=== PATIENT | male | born 1970 | race Caucasian/White ===

== ENCOUNTER 2018-04-26 11:11 | Emergency (ER) | payer MEDICARE ==
[2018-04-26] MEDS ORDERED: Cyclobenzaprine 10 MG TAB ONE (11:39)
[2018-04-26] MEDS ORDERED: HYDROcodone/Acetaminophen 10/325 mg Tablet ONE (11:39)
[2018-04-26 12:21] LABS: #Basophils 0.1 thou/uL (0.0-0.2); #Eosinphils 0.2 thou/uL (0.0-0.7); #Lymphocytes 1.5 thou/uL (1.20-3.40); #Monocytes 0.4 thou/uL (0.11-0.59); #Neutrophils 4.3 thou/uL (1.40-6.50); %Basophils 1.3 % (0.0-1.0); %Lymphocytes 23.7 % (21.0-51.0); %Monocytes 5.6 % (0.0-10.0); %Neutrophils 66.4 % (42.0-75.0); Hemoglobin 13.7 g/dL (14.0-18.0); Mean Corpuscular HGB CONC 32.3 g/dL (32.0-36.0); Mean Corpuscular Hemoglobin 29.8 pg (27.0-31.0); Mean Corpuscular Volume 92.2 fL (78.0-98.0); Mean Platelet Volume 6.8 fL (7.4-10.4); Platelet Count 259 thou/uL (130-400); RBC Distribution Width 11.9 % (11.5-14.5); Red Blood Cell (RBC) Count 4.61 mill/uL (4.70-6.10); White Blood Cell (WBC) Count 6.4 thou/uL (4.8-10.8)
[2018-04-26 12:35] LABS: ALT (SGPT) 54 U/L (8-55); AST (SGOT) 50 U/L (5-34); Albumin 4.1 g/dL (3.5-5.0); Alkaline Phosphatase 125 U/L (40-150); Anion Gap 15 mmol/L (10-20); BUN (Urea Nitrogen) 23 mg/dL (8.9-20.6); Bilirubin, Total 0.7 mg/dL (0.2-1.2); Calc. Creatinine Clearance 0 mL/min (70-130); Calcium 8.8 mg/dL (7.8-10.44); Carbon Dioxide 23 mmol/L (22-29); Chloride 103 mmol/L (98-107); Estimated GFR-MDRD 48; Globulin 3.9 g/dL (2.4-3.5); Glucose 138 mg/dL (70-105); Potassium 4.3 mmol/L (3.5-5.1); Sodium 137 mmol/L (136-145)
[2018-04-26 12:37] LABS: CKMB 1.2 ng/mL (0-6.6); Troponin I Less than 0.010 ng/mL (< 0.028)
[2018-04-26 14:01] LABS: Bilirubin Negative (Negative); Blood, Urine Trace (Negative); Clarity Clear (Clear); Glucose, Urine (Dipstick) Negative (Negative); Leukocyte Trace (Negative); Nitrite Negative (Negative); Protein, Urine (Dipstick) Negative (Neg-Trace); pH, Urine 5.5 (5.0-9.0)
[2018-04-26 14:04] LABS: Squamous Epithelial 0-3 HPF (0-3)
[2018-04-26 14:05] LABS: Bacteria/HPF Rare-Few HPF (None Seen)
--- NOTE | 2018-04-26 15:02 | CT ---
CERVICAL SPINE CT WITHOUT CONTRAST: DATE: 04/26/2018. COMPARISON: None. HISTORY: Injury, trauma, pain. TECHNIQUE: Serial axial CT imaging at 2.5 mm intervals from the skull base through the lung apices without contr ast. Coronal and sagittal reformatted imaging obtained. FINDINGS: There is mucosal thickening involving the alveolar recess of the right maxillary sinus. The C1 ring is intact. Body habitus limits detailed assessment of C5, C6, C7, and T1 vertebral bodies. On sagittal imaging, beam-hardening artifact severely limits assessment of C7 and T1 vertebral bodies. Axial imaging demonstrates no evidence for a fracture within the cervical spine, including the level of the cervicothoracic junction, which is not well assessed on the sagittal reformatted imaging. The re are numerous postoperative clips in the region of the thyroid bed. The occipital condyles, the dens, and the C1-2 articulation appears within normal limits as does the craniocervical junction. There is left-sided uncovertebral osteophyte formation at C5-6. No acute f racture or dislocation. No anterolisthesis or retrolisthesis. No prevertebral soft tissue swelling. IMPRESSION: No acute osseous abnormality. POS: [facility]
--- NOTE | 2018-04-26 15:29 | CT ---
CT OF THORACIC SPINE: DATE: 04/26/2018. COMPARISON: None. HISTORY: Injury, trauma, pain. TECHNIQUE: Serial axial CT imaging is obtained at 2.5 mm intervals from the lower cervical spine through the upp er lumbar spine without contrast. Coronal and sagittal reformatted imaging obtained. FINDINGS: Evaluation of the imaged viscera, vascular structures, and for lymphadenopathy is limited on noncontr ast-enhanced imaging. Surgical clips are seen in the thyroid bed suggesting prior thyroidectomy. Postoperative metallic clips noted inferior to the medial aspect of the right 2nd, 3rd, and 6th ribs. There is mild anterior wedging of the T8 and T9 vertebral bodies consistent with mild old compression fractures, as seen on a CT examination of the abdomen and pelvis performed 05/16/2011. The imaged lung parenchyma demonstrates no acute findings. Partially imaged upper abdomen demonstrates incompletely imaged hydronephrosis of the left kidney wit h dilation of the left renal pelvis, new when compared to 05/16/2011. This suggests new obstructive u ropathy on the left for which dedicated CT of the abdomen and pelvis is recommended. There is no acute fracture or evidence of dislocation within the thoracic spine. There is postoperat fam partial resection of the lamina on the right at T5 with postoperative change involving the gas furnace installer ior elements to the right of midline at T5-6. These postoperative changes are not optimally assessed on this exam. There is partial postoperative resection of the posterior aspect of the right 5th and 6th ribs. No discrete worrisome lytic or blastic bone lesion. IMPRESSION: 1. Postoperative and prior posttraumatic changes of the thoracic spine. Evaluation for underlying c entral canal and/or neural foraminal stenosis is suboptimal on routine CT. Postoperative site is not well assessed on this exam. 2. There is no evidence for acute fracture or dislocation within the thoracic spine. 3. Partially imaged left kidney demonstrates hydronephrosis with dilation of a partially imaged peter l pelvis. This is concerning for interval development of obstructive uropathy, etiology uncertain. Recommend CT examination of abdomen and pelvis for further assessment. CODE T POS: [facility]
--- NOTE | 2018-04-26 15:34 | CT ---
CT OF THE ABDOMEN AND PELVIS NONCONTRAST: INDICATION: Abdominal pain. Renal calculus protocol. Performed. FINDINGS: There is moderate left hydroureteral nephrosis with an obstructing, distal left ureteral calculus, wh ich measures 1 cm in diameter. There is nephrolithiasis of the lower pole of the left kidney. No ri ght urolithiasis. Within the imaged aspects of the urinary bladder, no visible calculus is seen. Pu nctate radiopaque densities are seen at the pleural surface of the right hemithorax, posteromedially. There is osseous degenerative change. Colonic diverticula are present. Evaluation is otherwise li mited the basis of noncontrast technique. IMPRESSION: 1. 1 cm distal left ureteral obstructing calculus with moderate left obstructive uropathy. Due to t he size of the calculus, recommend urologic consultation for further care. 2. Left nephrolithiasis. POS: [facility]
== END 2018-04-26 15:38 | disposition home or self-care (01) ==
LOC: MADERS 11:11
DX: N13.2 Hydronephrosis with renal and ureteral calculous obstruction (principal); S29.012A Strain of muscle and tendon of back wall of thorax, initial encounter; E78.5 Hyperlipidemia, unspecified; I10 Essential (primary) hypertension; X58.XXXA Exposure to other specified factors, initial encounter
CPT/HCPCS: 72125; 72128; 74176; 80053; 81003; 81015; 82553; 84484; 85025; 93005

== ENCOUNTER 2018-05-07 09:44 | Outpatient (CLI) | payer MEDICARE | END 2018-05-07 09:45 | disposition home or self-care (01) | LOC: MADEKG 09:44 | PROVIDERS: ATTEND Family Medicine | DX: R94.31 Abnormal electrocardiogram [ECG] [EKG] (principal) | CPT/HCPCS: 93005 ==

== ENCOUNTER 2018-05-13 09:53 | Outpatient (CLI) | payer MEDICARE ==
[2018-05-13 10:19] LABS: Bilirubin Negative (Negative); Blood, Urine Negative (Negative); Clarity Clear (Clear); Glucose, Urine (Dipstick) Negative (Negative); Leukocyte Trace (Negative); Nitrite Negative (Negative); Protein, Urine (Dipstick) Negative (Neg-Trace); Specific Gravity, Urine 1.025 (1.005-1.030); Urobilinogen 0.2 mg/dL (0.2-1.0); pH, Urine 5.5 (5.0-9.0)
[2018-05-13 10:28] LABS: Anion Gap 14 mmol/L (10-20); BUN (Urea Nitrogen) 18 mg/dL (8.9-20.6); Calc. Creatinine Clearance 0 mL/min (70-130); Calcium 9.7 mg/dL (7.8-10.44); Carbon Dioxide 26 mmol/L (22-29); Chloride 104 mmol/L (98-107); Estimated GFR-MDRD 52; Glucose 129 mg/dL (70-105); Potassium 3.9 mmol/L (3.5-5.1); Sodium 140 mmol/L (136-145)
[2018-05-13 10:32] LABS: Bacteria/HPF Rare-Few HPF (None Seen); RBC/HPF None Seen HPF (0-3); Squamous Epithelial 0-3 HPF (0-3)
--- NOTE | 2018-05-13 11:34 | CT ---
ABDOMEN CT WITHOUT CONTRAST PELVIC CT WITHOUT CONTRAST: Date: 05/13/18 COMPARISON: 04/26/18. HISTORY: Left flank pain. TECHNIQUE: Abdomen and pelvis CT are performed without contrast. Reformatted images are submitted for interpreta tion. FINDINGS: ABDOMEN CT: Chronic changes in the lung bases. Normal heart size. No significant pericardial fluid. Visualized ao rta has a normal caliber. No periaortic fat stranding. Gallbladder is surgically absent. Limited evaluation of the solid organs due to lack of IV contrast. No change with regards to the atte nuation of the solid organs. No mesenteric mass, lymphadenopathy, free air, or free fluid. No retroperitoneal mass, lymphadenopathy, free air, or free fluid. Stable moderate dilatation of the left intra and extrarenal collecting system. There is redemonstrati on of a solitary calculus in the distal aspect of the left ureter, measuring approximately 1.0 cm. Right intra and extrarenal collecting system is unremarkable. Limited evaluation of the alimentary canal. No evidence of bowel obstruction. Ileocecal junction is n ormal. Appendix is not appreciated. Colon is unremarkable. Occasional diverticulum. CT PELVIS: No mass, lymphadenopathy, free air, or free fluid. No lytic or blastic lesions in the osseous structures. IMPRESSION: Stable moderate left-sided obstructive uropathy secondary to a calculus in the distal left ureter. POS: [facility]
== END 2018-05-13 09:54 | disposition home or self-care (01) ==
LOC: MADLABBHPM 09:53
PROVIDERS: ATTEND Urology
DX: N20.0 Calculus of kidney (principal)
CPT/HCPCS: 36415; 74176; 80048; 81001

== ENCOUNTER 2018-07-22 07:55 | Emergency (ER) | payer MEDICARE, OTHER | END 2018-07-22 08:42 | disposition home or self-care (01) | LOC: MADERS 07:55 | DX: B34.9 Viral infection, unspecified (principal); E03.9 Hypothyroidism, unspecified; I10 Essential (primary) hypertension; E78.5 Hyperlipidemia, unspecified; Z87.442 Personal history of urinary calculi | CPT/HCPCS: 99281 ==

== ENCOUNTER 2018-12-16 14:48 | Outpatient (CLI) | payer MEDICARE ==
[~2018-12-16 14:48] MED LIST: Iopamidol 370 76% 100 ML VIAL ONE
--- NOTE | 2018-12-16 16:12 | CT ---
CT chest with IV contrast HISTORY: Anterior chest pain with radiation to back. Prior chest surgery for spinal tumors. FINDINGS: Lungs are well-inflated. No dominant mass. Scattered tiny nonspecific subpleural nodules. C hronic bilateral rib abnormalities are likely related to prior surgeries. Hemostasis clips at the right posterior paraspinal level of the upper thoracic cavity. Normal branching of the great vessels at the aortic arch. Calcification in coronary arteries. No pleural fluid or pneumothorax. No mediastinal adenopathy. Minimal pericardial fluid. The sternum has normal appearance. No chest wall m asses are apparent. Gallbladder is surgically absent. Leftward convex curvature of the midthoracic spine. Mild chronic appearing compression of the T9 vert ebral body. Stable compared to 04/26/2018. IMPRESSION: Prior surgery the posterior mediastinum and other chronic-type findings are stable. No ac piyush abnormalities are demonstrated to explain the patient's symptoms. Atherosclerosis.
== END 2018-12-16 14:49 | disposition home or self-care (01) ==
LOC: MADCT 14:48
DX: D18.00 Hemangioma unspecified site (principal); R07.89 Other chest pain; R52 Pain, unspecified; I25.10 Atherosclerotic heart disease of native coronary artery without angina pectoris
CPT/HCPCS: 71260; Q9967

== ENCOUNTER 2019-11-15 07:23 | Outpatient (CLI) | payer MEDICARE ==
--- NOTE | 2019-11-15 09:28 | ULT ---
RENAL ULTRASOUND: INDICATION: History of chronic kidney disease. FINDINGS: The prevoid bladder volume was 61.4 cc. Minimal postvoid residual was present. The right kidney measured 12.3 x 5.8 x 6.1 cm. There is a simple inferior renal peripelvic cyst maury uring 3.2 x 1.5 x 2 cm. The left kidney measures 10.6 x 5.3 x 5.7 cm. No focal renal lesion or hydronephrosis is evident. IMPRESSION: 1. No focal solid renal lesion or hydronephrosis demonstrated. 2. Right renal inferior parapelvic cyst. POS: [facility]
== END 2019-11-15 07:24 | disposition home or self-care (01) ==
LOC: MADULT 07:23
PROVIDERS: ATTEND Internal Medicine Nephrology
DX: N18.3 Chronic kidney disease, stage 3 (moderate) (principal); N28.1 Cyst of kidney, acquired
CPT/HCPCS: 76770

== ENCOUNTER 2019-11-26 13:14 | Emergency (ER) | payer MEDICARE ==
[2019-11-26] MEDS ORDERED: Morphine 4 MG/ML VIAL ONE ×2 (13:19→14:48)
--- NOTE | 2019-11-26 13:48 | RAD ---
EXAM: Chest 2 views: HISTORY: Chest pain COMPARISON: 06/24/2015 FINDINGS: There is a normal-sized cardiomediastinal silhouette. There is no evidence of consolidation, mass, or pleural effusion. The bones are unremarkable. IMPRESSION: No evidence of acute cardiopulmonary disease
[2019-11-26] MEDS ORDERED: Ketorolac Tromethamine 30 MG/ML VIAL ONE (13:54)
[2019-11-26] MEDS ORDERED: Ondansetron PF 4 MG/2 ML Vial ONE (14:07)
[2019-11-26] MEDS ORDERED: Diazepam 5 MG TAB ONE (14:07)
[2019-11-26] MEDS ORDERED: HYDROcodone/Acetaminophen 10/325 mg Tablet ONE (15:35)
[2019-11-26] MEDS ORDERED: Acetaminophen 325 MG TAB ONE (15:35)
== END 2019-11-26 15:40 | disposition home or self-care (01) ==
LOC: MADERS 13:14
DX: R07.89 Other chest pain (principal); M62.838 Other muscle spasm; I10 Essential (primary) hypertension; E78.5 Hyperlipidemia, unspecified; E78.00 Pure hypercholesterolemia, unspecified; Z79.899 Other long term (current) drug therapy
CPT/HCPCS: 71046; 96374; 96375; 96376; J1885; J2270; J2405

== ENCOUNTER 2020-01-20 11:50 | Emergency (ER) | payer MEDICARE ==
[~2020-01-20 11:50] MED LIST changes: -Iopamidol 370 76% 100 ML VIAL ONE; +Nitroglycerin 0.4 MG TAB 1 EACH ONE
[2020-01-20] MEDS ORDERED: Aspirin Chewable 81 MG TAB ONE (12:01)
[2020-01-20] MEDS ORDERED: Nitroglycerin 0.4 MG TAB 1 EACH ONE (12:01)
[2020-01-20] MEDS ORDERED: Diazepam 10 MG/2 ML SYRINGE ONE (12:33)
[2020-01-20] MEDS ORDERED: Morphine 4 MG/ML VIAL ONE ×2 (12:33→13:47)
[2020-01-20] MEDS ORDERED: Ketorolac Tromethamine 30 MG/ML VIAL ONE (12:34)
[2020-01-20 12:38] LABS: Eosinophils 2 % (0-10); Hemoglobin 14.5 g/dL (14.0-18.0); Lymphocytes 28 % (21-51); MDiff Complete? YES; Mean Corpuscular HGB CONC 31.5 g/dL (32.0-36.0); Mean Corpuscular Hemoglobin 28.1 pg (27.0-31.0); Mean Corpuscular Volume 89.3 fL (78.0-98.0); Mean Platelet Volume 8.9 fL (7.4-10.4); Monocytes 3 % (0-10); Neutrophil 63 % (42-75); Platelet Count 143 thou/uL (130-400); Platelet Morphology Comment PLT clumps seen-ADEQ; RBC Distribution Width 11.8 % (11.5-14.5); RBC Morphology Normal; Reactive Lymphocytes 4 % (0-10); Red Blood Cell (RBC) Count 5.15 mill/uL (4.70-6.10); White Blood Cell (WBC) Count 8.7 thou/uL (4.8-10.8)
[2020-01-20 12:45] LABS: BUN (Urea Nitrogen) 19 mg/dL (8.9-20.6); Carbon Dioxide 23 mmol/L (22-29); Chloride 101 mmol/L (98-107); Potassium 4.2 mmol/L (3.5-5.1); Sodium 138 mmol/L (136-145)
[2020-01-20 12:46] LABS: ALT (SGPT) 30 U/L (8-55); AST (SGOT) 22 U/L (5-34); Albumin 4.2 g/dL (3.5-5.0); Alkaline Phosphatase 82 U/L (40-110); Bilirubin, Total 0.5 mg/dL (0.2-1.2); CK (CPK) 92 U/L (30-200); Calc. Creatinine Clearance 0 mL/min (70-130); Calcium 8.8 mg/dL (7.8-10.44); Estimated GFR-MDRD 59; Globulin 4.1 g/dL (2.4-3.5); Glucose 170 mg/dL (70-105); Protein, Total 8.3 g/dL (6.0-8.3)
[2020-01-20 12:47] LABS: Anion Gap 18 mmol/L (10-20)
--- NOTE | 2020-01-20 12:49 | RAD ---
PORTABLE CHEST: HISTORY: Chest pain. COMPARISON: 04/17/2018 exam. FINDINGS: Heart size appears slightly enlarged. Mediastinal structures are unremarkable. Lungs show chronic c hange without focal infiltrates. IMPRESSION: Mild cardiomegaly with chronic lung change. No acute process. POS: [facility]
[2020-01-20 12:50] LABS: CKMB 1.1 ng/mL (0-6.6)
[2020-01-20 13:19] LABS: INR-International Normal Ratio 0.9; PTT 26.6 sec (22.9-36.1); Prothrombin Time 11.9 sec (12.0-14.7)
[2020-01-20 13:28] LABS: D-Dimer Test 0.45 *mcg/mL (0.27-0.43)
== END 2020-01-20 14:30 | disposition left against medical advice (07) ==
LOC: MADERS 11:50
DX: R07.9 Chest pain, unspecified (principal); M54.6 Pain in thoracic spine; R00.0 Tachycardia, unspecified; E78.5 Hyperlipidemia, unspecified; E78.00 Pure hypercholesterolemia, unspecified; I10 Essential (primary) hypertension; E03.9 Hypothyroidism, unspecified
CPT/HCPCS: 71045; 80053; 82550; 82553; 84484; 85025; 85379; 85610; 85730; 93005; 96374; 96375; 96376; J1885; J2270; J3360

== ENCOUNTER 2020-01-22 13:20 | Emergency (ER) | payer MEDICARE ==
[2020-01-22] MEDS ORDERED: Lidocaine 1% w/Epinephrine 1:100K 20 ML VIAL ONE (13:44)
[2020-01-22] MEDS ORDERED: Lorazepam 2 MG/ML VIAL ONE (13:44)
[2020-01-22] MEDS ORDERED: Morphine 4 MG/ML VIAL ONE (14:30)
[2020-01-22] MEDS ORDERED: Ketamine 50 MG/ML (10ML VIAL) ONE (15:49)
[2020-01-22 16:15] LABS: #Basophils 0.1 thou/uL (0.0-0.2); #Eosinphils 0.1 thou/uL (0.0-0.7); #Lymphocytes 1.2 thou/uL (1.20-3.40); #Monocytes 0.4 thou/uL (0.11-0.59); #Neutrophils 5.9 thou/uL (1.40-6.50); %Basophils 0.8 % (0.0-1.0); %Eosinophils 0.8 % (0.0-10.0); %Monocytes 5.7 % (0.0-10.0); %Neutrophils 76.7 % (42.0-75.0); Hemoglobin 13.6 g/dL (14.0-18.0); Mean Corpuscular Hemoglobin 29.4 pg (27.0-31.0); Mean Platelet Volume 7.2 fL (7.4-10.4); Platelet Count 205 thou/uL (130-400); RBC Distribution Width 11.8 % (11.5-14.5); Red Blood Cell (RBC) Count 4.61 mill/uL (4.70-6.10); White Blood Cell (WBC) Count 7.7 thou/uL (4.8-10.8)
[2020-01-22 16:33] LABS: ALT (SGPT) 33 U/L (8-55); AST (SGOT) 27 U/L (5-34); Alkaline Phosphatase 74 U/L (40-110); Anion Gap 15 mmol/L (10-20); BUN (Urea Nitrogen) 16 mg/dL (8.9-20.6); Bilirubin, Total 0.5 mg/dL (0.2-1.2); Calc. Creatinine Clearance 0 mL/min (70-130); Calcium 8.2 mg/dL (7.8-10.44); Carbon Dioxide 24 mmol/L (22-29); Chloride 103 mmol/L (98-107); Estimated GFR-MDRD 55; Globulin 3.7 g/dL (2.4-3.5); Glucose 146 mg/dL (70-105); Potassium 3.7 mmol/L (3.5-5.1); Protein, Total 7.7 g/dL (6.0-8.3); Sodium 138 mmol/L (136-145)
== END 2020-01-22 17:10 | disposition home or self-care (01) ==
LOC: MADERS 13:20
DX: G89.29 Other chronic pain (principal); M54.6 Pain in thoracic spine; M62.838 Other muscle spasm; E03.9 Hypothyroidism, unspecified; E78.5 Hyperlipidemia, unspecified; E78.00 Pure hypercholesterolemia, unspecified; I10 Essential (primary) hypertension; Z85.9 Personal history of malignant neoplasm, unspecified; Z86.018 Personal history of other benign neoplasm; Z79.891 Long term (current) use of opiate analgesic; Z87.442 Personal history of urinary calculi; Z79.899 Other long term (current) drug therapy
CPT/HCPCS: 20552; 36415; 80053; 83605; 84484; 85025; 96374; 96375; J2060; J2270

== ENCOUNTER 2020-01-27 07:36 | Emergency (ER) | payer MEDICARE ==
[2020-01-27] MEDS ORDERED: Diazepam 10 MG/2 ML SYRINGE ONE ×2 (08:42→13:47)
[2020-01-27] MEDS ORDERED: Ketorolac Tromethamine 30 MG/ML VIAL ONE (08:42)
[2020-01-27 09:04] LABS: #Basophils 0.1 thou/uL (0.0-0.2); #Eosinphils 0.2 thou/uL (0.0-0.7); #Lymphocytes 1.4 thou/uL (1.20-3.40); #Monocytes 0.4 thou/uL (0.11-0.59); #Neutrophils 5.4 thou/uL (1.40-6.50); %Basophils 0.9 % (0.0-1.0); %Eosinophils 2.9 % (0.0-10.0); %Lymphocytes 18.6 % (21.0-51.0); %Monocytes 5.1 % (0.0-10.0); %Neutrophils 72.6 % (42.0-75.0); Hemoglobin 14.3 g/dL (14.0-18.0); Mean Corpuscular HGB CONC 32.2 g/dL (32.0-36.0); Mean Corpuscular Hemoglobin 28.6 pg (27.0-31.0); Mean Corpuscular Volume 88.7 fL (78.0-98.0); Platelet Count 164 thou/uL (130-400); RBC Distribution Width 11.8 % (11.5-14.5); Red Blood Cell (RBC) Count 4.99 mill/uL (4.70-6.10); White Blood Cell (WBC) Count 7.5 thou/uL (4.8-10.8)
[2020-01-27 09:12] LABS: Anisocytosis SLIGHT = 6-15 cells (100X) (0-5/hpf); Platelet Morphology Comment Appears Adequate
[2020-01-27 09:19] LABS: ALT (SGPT) 40 U/L (8-55); AST (SGOT) 33 U/L (5-34); Alkaline Phosphatase 89 U/L (40-110); Anion Gap 16 mmol/L (10-20); BUN (Urea Nitrogen) 18 mg/dL (8.9-20.6); Bilirubin, Total 0.4 mg/dL (0.2-1.2); Calc. Creatinine Clearance 0 mL/min (70-130); Calcium 8.4 mg/dL (7.8-10.44); Carbon Dioxide 25 mmol/L (22-29); Chloride 100 mmol/L (98-107); Estimated GFR-MDRD 59; Globulin 3.9 g/dL (2.4-3.5); Glucose 162 mg/dL (70-105); Potassium 3.6 mmol/L (3.5-5.1); Protein, Total 7.9 g/dL (6.0-8.3); Sodium 137 mmol/L (136-145)
[2020-01-27] MEDS ORDERED: Doxycycline 100 MG CAP ONE (10:11)
[2020-01-27] MEDS ORDERED: Amlodipine 5 MG TAB ONE ×2 (13:16)
== END 2020-01-27 14:00 | disposition short-term general hospital (02) ==
LOC: MADERS 07:36
DX: L03.113 Cellulitis of right upper limb (principal); I10 Essential (primary) hypertension; E03.9 Hypothyroidism, unspecified; E78.5 Hyperlipidemia, unspecified; Z79.899 Other long term (current) drug therapy
CPT/HCPCS: 80053; 85025; 96374; 96375; 96376; J1885; J3360

== ENCOUNTER 2020-02-07 07:52 | Emergency (ER) | payer MEDICARE ==
[2020-02-07] MEDS ORDERED: Lorazepam 2 MG/ML VIAL ONE (08:31)
[2020-02-07] MEDS ORDERED: Fentanyl 100 MCG/2 ML VIAL ONE (08:31)
[2020-02-07 08:38] LABS: #Basophils 0.1 thou/uL (0.0-0.2); #Eosinphils 0.2 thou/uL (0.0-0.7); #Lymphocytes 1.9 thou/uL (1.20-3.40); #Monocytes 0.5 thou/uL (0.11-0.59); #Neutrophils 4.2 thou/uL (1.40-6.50); %Eosinophils 3.1 % (0.0-10.0); %Lymphocytes 27.4 % (21.0-51.0); %Monocytes 6.8 % (0.0-10.0); %Neutrophils 61.8 % (42.0-75.0); Hemoglobin 13.9 g/dL (14.0-18.0); Mean Corpuscular HGB CONC 31.4 g/dL (32.0-36.0); Mean Corpuscular Hemoglobin 28.3 pg (27.0-31.0); Mean Corpuscular Volume 90.3 fL (78.0-98.0); Mean Platelet Volume 7.1 fL (7.4-10.4); Platelet Count 294 thou/uL (130-400); RBC Distribution Width 12.4 % (11.5-14.5); White Blood Cell (WBC) Count 6.8 thou/uL (4.8-10.8)
--- NOTE | 2020-02-07 08:41 | RAD ---
EXAM: Single view of the chest HISTORY: Chest pain COMPARISON: 01/20/2020 FINDINGS: Single view of the chest shows a normal sized cardiomediastinal silhouette. There is no hanh dence of consolidation, mass, or pleural effusion. No acute osseous abnormality. IMPRESSION: No evidence of acute cardiopulmonary disease
[2020-02-07 08:51] LABS: ALT (SGPT) 37 U/L (8-55); AST (SGOT) 29 U/L (5-34); Albumin 4.1 g/dL (3.5-5.0); Alkaline Phosphatase 78 U/L (40-110); Anion Gap 15 mmol/L (10-20); BUN (Urea Nitrogen) 14 mg/dL (8.9-20.6); Bilirubin, Total 0.6 mg/dL (0.2-1.2); Calc. Creatinine Clearance 0 mL/min (70-130); Calcium 8.4 mg/dL (7.8-10.44); Carbon Dioxide 25 mmol/L (22-29); Chloride 102 mmol/L (98-107); Estimated GFR-MDRD 58; Globulin 3.6 g/dL (2.4-3.5); Glucose 154 mg/dL (70-105); Potassium 3.8 mmol/L (3.5-5.1); Protein, Total 7.7 g/dL (6.0-8.3); Sodium 138 mmol/L (136-145)
[2020-02-07] MEDS ORDERED: methylPREDNISolone Sod Succ/PF 125 MG/2 ML VIAL ONE (09:32)
== END 2020-02-07 09:00 | disposition home or self-care (01) ==
LOC: MADERS 07:52
DX: G89.29 Other chronic pain (principal); M54.6 Pain in thoracic spine; E03.9 Hypothyroidism, unspecified; E78.5 Hyperlipidemia, unspecified; E78.00 Pure hypercholesterolemia, unspecified; I10 Essential (primary) hypertension; Z79.899 Other long term (current) drug therapy
CPT/HCPCS: 71045; 80053; 84484; 85025; 93005; 96374; 96375; J2060; J2930; J3010

== ENCOUNTER 2020-03-14 07:31 | Emergency (ER) | payer MEDICARE ==
[2020-03-14] MEDS ORDERED: Ketamine 50 MG/ML (10ML VIAL) ONE (07:58)
[2020-03-14] MEDS ORDERED: Lorazepam 2 MG/ML VIAL ONE (07:58)
[2020-03-14] MEDS ORDERED: Aspirin Chewable 81 MG TAB ONE (08:34)
--- NOTE | 2020-03-14 08:43 | RAD ---
PORTABLE AP CHEST: Date: 03/14/2020 INDICATION: Chest pain. FINDINGS: The lung fult[place] are clear. No infiltrate or vascular congestion. Heart and mediastinum unremarkable. IMPRESSION: No acute process. POS: [facility]
[2020-03-14 08:45] LABS: #Basophils 0.1 thou/uL (0.0-0.2); #Eosinphils 0.1 thou/uL (0.0-0.7); #Lymphocytes 1.9 thou/uL (1.20-3.40); #Monocytes 0.6 thou/uL (0.11-0.59); #Neutrophils 5.9 thou/uL (1.40-6.50); %Basophils 1.2 % (0.0-1.0); %Eosinophils 1.4 % (0.0-10.0); %Lymphocytes 22.2 % (21.0-51.0); %Monocytes 6.6 % (0.0-10.0); %Neutrophils 68.7 % (42.0-75.0); Hemoglobin 14.1 g/dL (14.0-18.0); Mean Corpuscular HGB CONC 32.2 g/dL (32.0-36.0); Mean Corpuscular Hemoglobin 29.1 pg (27.0-31.0); Mean Corpuscular Volume 90.2 fL (78.0-98.0); Platelet Count 296 thou/uL (130-400); Red Blood Cell (RBC) Count 4.85 mill/uL (4.70-6.10); White Blood Cell (WBC) Count 8.6 thou/uL (4.8-10.8)
[2020-03-14] MEDS ORDERED: Ketorolac Tromethamine 30 MG/ML VIAL ONE (08:55)
[2020-03-14] MEDS ORDERED: Morphine 10 MG/ML VIAL ONE (08:55)
[2020-03-14] MEDS ORDERED: diphenhydrAMINE 50 MG/ML VIAL ONE (08:55)
[2020-03-14 08:57] LABS: ALT (SGPT) 41 U/L (8-55); AST (SGOT) 32 U/L (5-34); Albumin 4.1 g/dL (3.5-5.0); Alkaline Phosphatase 100 U/L (40-110); Anion Gap 18 mmol/L (10-20); BUN (Urea Nitrogen) 32 mg/dL (8.9-20.6); Bilirubin, Total 0.6 mg/dL (0.2-1.2); Calc. Creatinine Clearance 0 mL/min (70-130); Calcium 8.7 mg/dL (7.8-10.44); Carbon Dioxide 25 mmol/L (22-29); Chloride 101 mmol/L (98-107); Estimated GFR-MDRD 47; Glucose 177 mg/dL (70-105); Potassium 3.8 mmol/L (3.5-5.1); Protein, Total 8.1 g/dL (6.0-8.3); Sodium 140 mmol/L (136-145)
[2020-03-14] MEDS ORDERED: Ondansetron PF 4 MG/2 ML Vial ONE (09:14)
== END 2020-03-14 09:40 | disposition home or self-care (01) ==
LOC: MADERS 07:31
DX: G89.29 Other chronic pain (principal); M54.6 Pain in thoracic spine; I12.9 Hypertensive chronic kidney disease with stage 1 through stage 4 chronic kidney disease, or unspecified chronic kidney disease; N18.9 Chronic kidney disease, unspecified; R73.9 Hyperglycemia, unspecified; R00.0 Tachycardia, unspecified; E03.9 Hypothyroidism, unspecified; E78.5 Hyperlipidemia, unspecified; E78.00 Pure hypercholesterolemia, unspecified; Z87.442 Personal history of urinary calculi; Z79.891 Long term (current) use of opiate analgesic; Z85.830 Personal history of malignant neoplasm of bone; Z79.899 Other long term (current) drug therapy
CPT/HCPCS: 71045; 80053; 84484; 85025; 94760; 96372; 96374; 96375; J1200; J1885; J2060; J2270; J2405

== ENCOUNTER 2020-03-16 07:42 | Emergency (ER) | payer MEDICARE ==
[2020-03-16 08:24] LABS: #Basophils 0.1 thou/uL (0.0-0.2); #Eosinphils 0.1 thou/uL (0.0-0.7); #Lymphocytes 1.9 thou/uL (1.20-3.40); #Monocytes 0.4 thou/uL (0.11-0.59); #Neutrophils 5.1 thou/uL (1.40-6.50); %Basophils 0.9 % (0.0-1.0); %Eosinophils 1.6 % (0.0-10.0); %Monocytes 5.6 % (0.0-10.0); %Neutrophils 66.9 % (42.0-75.0); Hemoglobin 13.6 g/dL (14.0-18.0); Mean Corpuscular HGB CONC 31.7 g/dL (32.0-36.0); Mean Corpuscular Hemoglobin 28.8 pg (27.0-31.0); Mean Corpuscular Volume 91.1 fL (78.0-98.0); Platelet Count 289 thou/uL (130-400); RBC Distribution Width 12.3 % (11.5-14.5); White Blood Cell (WBC) Count 7.6 thou/uL (4.8-10.8)
--- NOTE | 2020-03-16 08:37 | RAD ---
RADIOGRAPH CHEST 1 VIEW: DATE: 03/16/2020 HISTORY: 49-year-old male with chest pain. COMPARISON: 03/14/2020 FINDINGS: There are no airspace densities, pulmonary edema, pneumothorax, or cardiomegaly. The lateral costophr enic angles are sharp. There is absence of the posterior aspect of the right sixth rib. What appears to be the distal lateral aspect of the right sixth rib now overlaps the seventh rib, whereas previously it did not. This slight interval apparent difference is probably due to slight positional differences. There has been no other interval change. IMPRESSION: 1. No acute cardiopulmonary findings. 2. Status post surgical resection of posterior aspect of right sixth rib.
[2020-03-16 08:40] LABS: ALT (SGPT) 40 U/L (8-55); AST (SGOT) 30 U/L (5-34); Alkaline Phosphatase 85 U/L (40-110); Anion Gap 17 mmol/L (10-20); BUN (Urea Nitrogen) 23 mg/dL (8.9-20.6); Bilirubin, Total 0.7 mg/dL (0.2-1.2); CK (CPK) 48 U/L (30-200); Calc. Creatinine Clearance 0 mL/min (70-130); Calcium 8.5 mg/dL (7.8-10.44); Carbon Dioxide 26 mmol/L (22-29); Chloride 101 mmol/L (98-107); Estimated GFR-MDRD 60; Globulin 3.5 g/dL (2.4-3.5); Glucose 162 mg/dL (70-105); Potassium 3.7 mmol/L (3.5-5.1); Protein, Total 7.5 g/dL (6.0-8.3); Sodium 140 mmol/L (136-145)
[2020-03-16] MEDS ORDERED: Ketorolac Tromethamine 30 MG/ML VIAL ONE (09:08)
[2020-03-16] MEDS ORDERED: HYDROmorphone 0.5 MG/0.5 ML SYRINGE ONE (09:08)
[2020-03-16] MEDS ORDERED: Ondansetron PF 4 MG/2 ML Vial ONE (09:24)
[2020-03-16] MEDS ORDERED: Sodium Chloride 0.9% 0 ML ONE (11:32)
[2020-03-16] MEDS ORDERED: Promethazine HCl 25 MG/ML VIAL ONE (11:32)
[2020-03-16] MEDS ORDERED: Sodium Chloride 0.9% 100 ML ONE (11:33)
== END 2020-03-16 13:06 | disposition home or self-care (01) ==
LOC: MADERS 07:42
DX: R07.9 Chest pain, unspecified (principal); G89.29 Other chronic pain; M54.9 Dorsalgia, unspecified; D16.6 Benign neoplasm of vertebral column; E78.5 Hyperlipidemia, unspecified; E78.00 Pure hypercholesterolemia, unspecified; I10 Essential (primary) hypertension
CPT/HCPCS: 36415; 71045; 80053; 82550; 82553; 84484; 85025; 93005; 94760; 96374; 96375; J1170; J1885; J2405; J2550; J3490

== ENCOUNTER 2020-04-01 12:51 | Emergency (ER) | payer MEDICARE ==
[2020-04-01] MEDS ORDERED: Cyclobenzaprine 10 MG TAB ONE (13:46)
== END 2020-04-01 13:56 | disposition home or self-care (01) ==
LOC: MADERS 12:51
DX: M62.830 Muscle spasm of back (principal); D49.2 Neoplasm of unspecified behavior of bone, soft tissue, and skin; E03.9 Hypothyroidism, unspecified; E78.5 Hyperlipidemia, unspecified; E78.00 Pure hypercholesterolemia, unspecified; I10 Essential (primary) hypertension; Z87.442 Personal history of urinary calculi; Z79.891 Long term (current) use of opiate analgesic; Z79.899 Other long term (current) drug therapy; X50.1XXA Overexertion from prolonged static or awkward postures, initial encounter

== ENCOUNTER 2020-04-04 20:58 | Emergency (ER) | payer MEDICARE ==
[2020-04-04 21:55] LABS: Band 8 % (5-11); Eosinophils 4 % (0-10); Hemoglobin 14.4 g/dL (14.0-18.0); Lymphocytes 20 % (21-51); MDiff Complete? YES; Mean Corpuscular HGB CONC 33.9 g/dL (32.0-36.0); Mean Corpuscular Hemoglobin 31.2 pg (27.0-31.0); Mean Platelet Volume 7.6 fL (7.4-10.4); Monocytes 6 % (0-10); Neutrophil 62 % (42-75); Platelet Count 237 thou/uL (130-400); Platelet Morphology Comment Appears Adequate; RBC Morphology Normal; Red Blood Cell (RBC) Count 4.62 mill/uL (4.70-6.10); White Blood Cell (WBC) Count 8.8 thou/uL (4.8-10.8)
[2020-04-04 21:59] LABS: ALT (SGPT) 52 U/L (8-55); AST (SGOT) 47 U/L (5-34); Albumin 4.1 g/dL (3.5-5.0); Alkaline Phosphatase 116 U/L (40-110); Anion Gap 18 mmol/L (10-20); BUN (Urea Nitrogen) 22 mg/dL (8.9-20.6); Bilirubin, Total 0.3 mg/dL (0.2-1.2); Calc. Creatinine Clearance 0 mL/min (70-130); Calcium 8.7 mg/dL (7.8-10.44); Carbon Dioxide 25 mmol/L (22-29); Chloride 98 mmol/L (98-107); Estimated GFR-MDRD 40; Globulin 3.7 g/dL (2.4-3.5); Glucose 204 mg/dL (70-105); Potassium 3.7 mmol/L (3.5-5.1); Protein, Total 7.8 g/dL (6.0-8.3); Sodium 137 mmol/L (136-145)
--- NOTE | 2020-04-04 22:00 | RAD ---
PORTABLE CHEST: 04/04/20 INDICATIONS: Chest pain. COMPARISON: 03/16/20 Lungs appear clear. Heart mildly prominent but stable. Vasculature within normal range and stable. No effusion. No interval change. IMPRESSION: No acute findings. POS: [facility]
[2020-04-04] MEDS ORDERED: Morphine 4 MG/ML VIAL ONE (22:07)
[2020-04-04] MEDS ORDERED: Ketorolac Tromethamine 30 MG/ML VIAL ONE (22:07)
== END 2020-04-04 23:04 | disposition home or self-care (01) ==
LOC: MADERS 20:58
DX: G89.29 Other chronic pain (principal); M54.6 Pain in thoracic spine; E03.9 Hypothyroidism, unspecified; I10 Essential (primary) hypertension; E78.5 Hyperlipidemia, unspecified; E78.00 Pure hypercholesterolemia, unspecified; Z87.442 Personal history of urinary calculi
CPT/HCPCS: 36415; 71045; 80053; 83880; 84484; 85025; 93005; 96374; 96375; J1885; J2270

== ENCOUNTER 2020-04-14 12:45 | Emergency (ER) | payer MEDICARE ==
[2020-04-14] MEDS ORDERED: Ondansetron PF 4 MG/2 ML Vial ONE (13:08)
[2020-04-14] MEDS ORDERED: Cyclobenzaprine 10 MG TAB ONE (13:08)
[2020-04-14] MEDS ORDERED: Morphine 4 MG/ML VIAL ONE ×3 (13:29→15:23)
[2020-04-14] MEDS ORDERED: Ketorolac Tromethamine 30 MG/ML VIAL ONE (13:59)
== END 2020-04-14 15:45 | disposition home or self-care (01) ==
LOC: MADERS 12:45
DX: D49.2 Neoplasm of unspecified behavior of bone, soft tissue, and skin (principal); M62.830 Muscle spasm of back; E03.9 Hypothyroidism, unspecified; I10 Essential (primary) hypertension; E78.5 Hyperlipidemia, unspecified; E78.00 Pure hypercholesterolemia, unspecified; Z79.899 Other long term (current) drug therapy
CPT/HCPCS: 96374; 96375; 96376; J1885; J2270; J2405

== ENCOUNTER 2020-05-01 20:21 | Emergency (ER) | payer MEDICARE ==
[2020-05-01] MEDS ORDERED: Diazepam 5 MG TAB ONE (20:33)
[2020-05-01] MEDS ORDERED: HYDROmorphone 0.5 MG/0.5 ML SYRINGE ONE (20:33)
[2020-05-01] MEDS ORDERED: Magnesium 2 GM/50 ML BAG (IN WATER) ONE (20:33)
[2020-05-01] MEDS ORDERED: Ketorolac Tromethamine 30 MG/ML VIAL ONE (20:33)
[2020-05-01] MEDS ORDERED: HYDROcodone/Acetaminophen 10/325 mg Tablet ONE (21:13)
== END 2020-05-01 21:42 | disposition home or self-care (01) ==
LOC: MADERS 20:21
DX: M62.830 Muscle spasm of back (principal); E03.9 Hypothyroidism, unspecified; I10 Essential (primary) hypertension; E78.5 Hyperlipidemia, unspecified; E78.00 Pure hypercholesterolemia, unspecified; Z79.899 Other long term (current) drug therapy
CPT/HCPCS: 96365; 96375; J1170; J1885; J3475

== ENCOUNTER 2020-09-10 17:51 | Emergency (ER) | payer MEDICARE ==
[2020-09-10] MEDS ORDERED: Morphine 4 MG/ML VIAL ONE ×2 (19:00→20:06)
[2020-09-10] MEDS ORDERED: Ketorolac Tromethamine 60 MG/2 ML VIAL ONE (19:00)
[2020-09-10 19:33] LABS: #Basophils 0.1 thou/uL (0.0-0.2); #Eosinphils 0.3 thou/uL (0.0-0.7); #Monocytes 0.5 thou/uL (0.11-0.59); #Neutrophils 3.9 thou/uL (1.40-6.50); %Eosinophils 4.5 % (0.0-10.0); %Lymphocytes 29.4 % (21.0-51.0); %Monocytes 6.8 % (0.0-10.0); %Neutrophils 58.4 % (42.0-75.0); Hemoglobin 14.1 g/dL (14.0-18.0); Mean Corpuscular HGB CONC 31.3 g/dL (32.0-36.0); Mean Corpuscular Hemoglobin 29.9 pg (27.0-31.0); Mean Corpuscular Volume 95.5 fL (78.0-98.0); Mean Platelet Volume 8.6 fL (7.4-10.4); Platelet Count 251 thou/uL (130-400); RBC Distribution Width 12.7 % (11.5-14.5); Red Blood Cell (RBC) Count 4.72 mill/uL (4.70-6.10); White Blood Cell (WBC) Count 6.7 thou/uL (4.8-10.8)
[2020-09-10 19:50] LABS: ALT (SGPT) 88 U/L (8-55); AST (SGOT) 64 U/L (5-34); Albumin 4.1 g/dL (3.5-5.0); Alkaline Phosphatase 103 U/L (40-110); Anion Gap 16 mmol/L (10-20); BUN (Urea Nitrogen) 21 mg/dL (8.9-20.6); Bilirubin, Total 0.3 mg/dL (0.2-1.2); Calc. Creatinine Clearance 0 mL/min (70-130); Calcium 8.6 mg/dL (7.8-10.44); Carbon Dioxide 24 mmol/L (22-29); Chloride 100 mmol/L (98-107); Globulin 3.9 g/dL (2.4-3.5); Glucose 269 mg/dL (70-105); Potassium 3.7 mmol/L (3.5-5.1); Sodium 136 mmol/L (136-145)
[2020-09-10] MEDS ORDERED: Dexamethasone 10 MG/ML VIAL ONE (20:20)
== END 2020-09-10 20:44 | disposition home or self-care (01) ==
LOC: MADERS 17:51
DX: G89.29 Other chronic pain (principal); M54.6 Pain in thoracic spine; R10.13 Epigastric pain; E03.9 Hypothyroidism, unspecified; I10 Essential (primary) hypertension; E78.5 Hyperlipidemia, unspecified; E78.00 Pure hypercholesterolemia, unspecified; Z79.899 Other long term (current) drug therapy
CPT/HCPCS: 36415; 80053; 83880; 84484; 85025; 93005; 96372; J1100; J1885; J2270

== ENCOUNTER 2020-10-05 20:46 | Emergency (ER) | payer MEDICARE ==
[2020-10-05] MEDS ORDERED: Ketorolac Tromethamine 30 MG/ML VIAL ONE (21:26)
[2020-10-05] MEDS ORDERED: Diazepam 10 MG/2 ML SYRINGE ONE (21:26)
[2020-10-05] MEDS ORDERED: Fentanyl 100 MCG/2 ML VIAL ONE (22:05)
== END 2020-10-05 22:35 | disposition home or self-care (01) ==
LOC: MADERS 20:46
DX: M54.6 Pain in thoracic spine (principal); G89.29 Other chronic pain; E03.9 Hypothyroidism, unspecified; I10 Essential (primary) hypertension; Z79.899 Other long term (current) drug therapy
CPT/HCPCS: 93005; 94760; 96374; 96375; J1885; J3010; J3360

== ENCOUNTER 2020-11-19 07:44 | Emergency (ER) | payer MEDICARE ==
[2020-11-19 08:16] LABS: #Basophils 0.1 thou/uL (0.0-0.2); #Eosinphils 0.3 thou/uL (0.0-0.7); #Lymphocytes 2.1 thou/uL (1.20-3.40); #Monocytes 0.4 thou/uL (0.11-0.59); #Neutrophils 4.1 thou/uL (1.40-6.50); %Basophils 1.3 % (0.0-1.0); %Eosinophils 4.6 % (0.0-10.0); %Lymphocytes 29.9 % (21.0-51.0); %Neutrophils 58.2 % (42.0-75.0); Hemoglobin 14.5 g/dL (14.0-18.0); Mean Corpuscular HGB CONC 31.2 g/dL (32.0-36.0); Mean Corpuscular Hemoglobin 29.3 pg (27.0-31.0); Mean Corpuscular Volume 94.1 fL (78.0-98.0); Mean Platelet Volume 8.5 fL (7.4-10.4); Platelet Count 242 thou/uL (130-400); Red Blood Cell (RBC) Count 4.93 mill/uL (4.70-6.10)
[2020-11-19] MEDS ORDERED: Aspirin Chewable 81 MG TAB ONE (08:22)
[2020-11-19 08:41] LABS: ALT (SGPT) 106 U/L (8-55); AST (SGOT) 83 U/L (5-34); Albumin 4.1 g/dL (3.5-5.0); Alkaline Phosphatase 115 U/L (40-110); Anion Gap 18 mmol/L (10-20); BUN (Urea Nitrogen) 12 mg/dL (8.9-20.6); Bilirubin, Total 0.6 mg/dL (0.2-1.2); Calc. Creatinine Clearance 0 mL/min (70-130); Calcium 8.7 mg/dL (7.8-10.44); Carbon Dioxide 25 mmol/L (22-29); Chloride 98 mmol/L (98-107); Globulin 3.9 g/dL (2.4-3.5); Potassium 4.3 mmol/L (3.5-5.1); Sodium 137 mmol/L (136-145)
[2020-11-19 08:42] LABS: Glucose 243 mg/dL (70-105)
== END 2020-11-19 09:00 | disposition home or self-care (01) ==
LOC: MADERS 07:44
DX: R07.81 Pleurodynia (principal); M54.6 Pain in thoracic spine; G89.29 Other chronic pain; R79.89 Other specified abnormal findings of blood chemistry; E11.9 Type 2 diabetes mellitus without complications; E78.5 Hyperlipidemia, unspecified; I10 Essential (primary) hypertension; E66.9 Obesity, unspecified; E78.00 Pure hypercholesterolemia, unspecified; E03.9 Hypothyroidism, unspecified; Z87.442 Personal history of urinary calculi; Z79.899 Other long term (current) drug therapy; Z79.891 Long term (current) use of opiate analgesic; Z85.848 Personal history of malignant neoplasm of other parts of nervous tissue
CPT/HCPCS: 71045; 80053; 84484; 85025; 93005; 94760

== ENCOUNTER 2021-12-13 13:26 | Emergency (ER) | payer MEDICARE ==
[2021-12-13] MEDS ORDERED: Ketorolac Tromethamine 30 MG/ML VIAL ONE (14:17)
[2021-12-13 14:26] LABS: #Basophils 0.1 thou/uL (0.0-0.2); #Eosinphils 0.3 thou/uL (0.0-0.7); #Lymphocytes 1.9 thou/uL (1.20-3.40); #Monocytes 0.4 thou/uL (0.11-0.59); #Neutrophils 4.2 thou/uL (1.40-6.50); %Basophils 0.9 % (0.0-1.0); %Eosinophils 4.8 % (0.0-10.0); %Monocytes 5.6 % (0.0-10.0); %Neutrophils 61.6 % (42.0-75.0); Hemoglobin 13.8 g/dL (14.0-18.0); Mean Corpuscular Hemoglobin 28.1 pg (27.0-31.0); Mean Corpuscular Volume 87.9 fL (78.0-98.0); Platelet Count 191 thou/uL (130-400); RBC Distribution Width 12.1 % (11.5-14.5); Red Blood Cell (RBC) Count 4.92 mill/uL (4.70-6.10); White Blood Cell (WBC) Count 6.9 thou/uL (4.8-10.8)
[2021-12-13 14:35] LABS: ALT (SGPT) 51 U/L (8-55); AST (SGOT) 42 U/L (5-34); Alkaline Phosphatase 118 U/L (40-110); Anion Gap 13 mmol/L (10-20); BUN (Urea Nitrogen) 19 mg/dL (8.4-25.7); Bilirubin, Total 0.7 mg/dL (0.2-1.2); Calc. Creatinine Clearance 0 mL/min (70-130); Calcium 8.1 mg/dL (7.8-10.44); Carbon Dioxide 28 mmol/L (22-29); Chloride 101 mmol/L (98-107); Estimated GFR 56; Globulin 3.6 g/dL (2.4-3.5); Glucose 224 mg/dL (70-105); Potassium 3.6 mmol/L (3.5-5.1); Protein, Total 7.6 g/dL (6.0-8.3); Sodium 138 mmol/L (136-145)
== END 2021-12-13 15:00 | disposition home or self-care (01) ==
LOC: MADERS 13:26
DX: G89.29 Other chronic pain (principal); R07.89 Other chest pain; M54.6 Pain in thoracic spine; I45.2 Bifascicular block; I10 Essential (primary) hypertension; E03.9 Hypothyroidism, unspecified; E78.5 Hyperlipidemia, unspecified; E78.00 Pure hypercholesterolemia, unspecified; Z87.442 Personal history of urinary calculi; Z85.89 Personal history of malignant neoplasm of other organs and systems; Z79.899 Other long term (current) drug therapy
CPT/HCPCS: 71045; 80053; 84484; 85025; 93005; 94760; 96374; J1885

== ENCOUNTER 2023-11-11 12:43 | Emergency (ER) | payer MEDICARE, SELFPAY ==
[~2023-11-11 12:43] MED LIST changes: +Iopamidol 370 76% 100 ML VIAL ONE; -Nitroglycerin 0.4 MG TAB 1 EACH ONE
[2023-11-11] MEDS ORDERED: Ondansetron PF 4 MG/2 ML Vial ONE (13:29)
[2023-11-11] MEDS ORDERED: Morphine 4 MG/ML VIAL ONE (13:29)
[2023-11-11] MEDS ORDERED: Orphenadrine Citrate 60 MG/2 ML VIAL ONE (13:29)
[2023-11-11 13:37] LABS: #Basophils 0.1 thou/uL (0.0-0.2); #Eosinphils 0.1 thou/uL (0.0-0.7); #Lymphocytes 1.3 thou/uL (1.20-3.40); #Monocytes 0.4 thou/uL (0.11-0.59); #Neutrophils 5.4 thou/uL (1.40-6.50); %Basophils 0.8 % (0.0-1.0); %Eosinophils 1.2 % (0.0-10.0); %Lymphocytes 17.7 % (21.0-51.0); %Neutrophils 74.4 % (42.0-75.0); Hematocrit 48.2 % (42.0-52.0); Hemoglobin 14.9 g/dL (14.0-18.0); Mean Corpuscular Volume 90.3 fl (78.0-98.0); Mean Platelet Volume 6.6 fL (7.4-10.4); Platelet Count 206 10x3/uL (130-400); RBC Distribution Width 12.6 % (11.5-14.5); Red Blood Cell (RBC) Count 5.34 mill/uL (4.70-6.10); White Blood Cell (WBC) Count 7.3 10x3/uL (4.8-10.8)
[2023-11-11 13:51] LABS: ALT (SGPT) 28 U/L (8-55); AST (SGOT) 21 U/L (5-34); Albumin 4.2 g/dL (3.5-5.0); Alkaline Phosphatase 110 U/L (40-110); Anion Gap 17 mmol/L (10-20); BUN (Urea Nitrogen) 20 mg/dL (8.4-25.7); Bilirubin, Total 1.3 mg/dL (0.2-1.2); Calc. Creatinine Clearance 0 mL/min (70-130); Calcium 9.2 mg/dL (7.8-10.44); Carbon Dioxide 22 mmol/L (22-29); Chloride 103 mmol/L (98-107); Estimated GFR 61; Globulin 3.6 g/dL (2.4-3.5); Glucose 163 mg/dL (70-105); Lipase 41 U/L (8-78); Potassium 3.5 mmol/L (3.5-5.1); Protein, Total 7.8 g/dL (6.0-8.3); Sodium 138 mmol/L (136-145)
[2023-11-11 13:52] LABS: Troponin I Less than 0.010 ng/mL (< 0.028)
[2023-11-11 15:25] LABS: Bilirubin Negative (Negative); Blood, Urine Trace (Negative); Clarity Hazy (Clear); Glucose, Urine (Dipstick) >=1000 mg/dL (Negative); Ketone, Urine Negative (Negative); Leukocyte Negative (Negative); Nitrite Negative (Negative); Protein, Urine (Dipstick) Negative (Neg-Trace)
[2023-11-11 15:34] LABS: Bacteria/HPF Rare-Few HPF (None Seen); CAUTI Indications for Culture Pelvic or flank pain; RBC/HPF 0-3 HPF (0-3); Squamous Epithelial 0-3 HPF (0-3); Urine Culture Reflex No No; WBC/HPF 0-3 HPF (0-3)
== END 2023-11-11 15:06 | disposition home or self-care (01) ==
LOC: MADERS 12:43
DX: M62.830 Muscle spasm of back (principal); I10 Essential (primary) hypertension
CPT/HCPCS: 71045; 72130; 80053; 81001; 83605; 83690; 84484; 85025; 93005; 96372; 96374; 96375; J2270; J2360; J2405; Q9967

== ENCOUNTER 2024-05-06 12:23 | Emergency (ER) | payer SELFPAY ==
[2024-05-06] MEDS ORDERED: Ketorolac Tromethamine 30 MG (1 mL) VIAL ONE (12:44)
[2024-05-06] MEDS ORDERED: Methocarbamol 1 GM (10 mL) VIAL ONE (12:46)
[2024-05-06] MEDS ORDERED: Morphine 2 MG/ML VIAL ONE (13:52)
== END 2024-05-06 14:17 | disposition home or self-care (01) ==
LOC: MADERS 12:23
DX: R07.89 Other chest pain (principal); M25.511 Pain in right shoulder; G89.29 Other chronic pain; I10 Essential (primary) hypertension
CPT/HCPCS: 96374; 96375; J1885; J2272; J2800

== ENCOUNTER 2025-03-20 13:48 | Emergency (ER) | payer MEDICARE ==
[2025-03-20] MEDS ORDERED: Clindamycin 150 MG CAP ONE (15:36)
== END 2025-03-20 15:40 | disposition home or self-care (01) ==
LOC: MADERS 13:48
DX: L03.114 Cellulitis of left upper limb (principal); L01.00 Impetigo, unspecified; I10 Essential (primary) hypertension; E11.9 Type 2 diabetes mellitus without complications
CPT/HCPCS: 99283

== ENCOUNTER 2025-03-22 19:25 | Emergency (ER) | payer MEDICARE ==
[2025-03-22] MEDS ORDERED: Cephalexin 500 MG CAP ONE (20:03)
== END 2025-03-22 20:38 | disposition home or self-care (01) ==
LOC: MADERS 19:25
DX: L03.114 Cellulitis of left upper limb (principal); L03.221 Cellulitis of neck; E03.9 Hypothyroidism, unspecified; E11.9 Type 2 diabetes mellitus without complications; I10 Essential (primary) hypertension; E78.5 Hyperlipidemia, unspecified; K21.9 Gastro-esophageal reflux disease without esophagitis
CPT/HCPCS: 99283